=== PATIENT | female | born 1995 | race African-American/Black ===

== ENCOUNTER 2025-03-13 13:02 | Emergency (ER) | payer OTHER ==
[2025-03-13 13:56] LABS: BASOPHILS ABSOLUTE AUTO 0.0 K/mm3 (0.0-0.2); BASOPHILS PERCENT AUTO 0.5 % (0.0-1.0); EOSINOPHILS ABSOLUTE AUTO 0.2 K/mm3 (0.0-0.4); EOSINOPHILS PERCENT AUTO 2.5 % (0.0-6.0); IMMATURE GRAN ABSOLUTE AUTO 0.01 K/mm3 (0.00-0.05); IMMATURE GRAN PERCENT AUTO 0.2 % (0.0-0.4); LYMPHOCYTES ABSOLUTE AUTO 1.5 K/mm3 (1.0-4.8); LYMPHOCYTES PERCENT AUTO 25.2 % (24.0-44.0); MEAN PLATELET VOLUME 9.9 fl (9.4-12.3); MONOCYTES ABSOLUTE AUTO 0.4 K/mm3 (0.0-0.8); MONOCYTES PERCENT AUTO 7.0 % (0.0-8.0); NEUTROPHILS ABSOLUTE AUTO 3.9 K/mm3 (1.8-7.7); NEUTROPHILS PERCENT AUTO 64.6 % (41.0-71.0); NRBC ABSOLUTE 0.00 (0.00-0.02); NRBC PERCENT 0.0 % (0.0-0.2); PLATELET COUNT,PLT 250 K/mm3 (150-400); RED BLOOD CELL COUNT 4.30 M/mm3 (4.10-5.30); WHITE BLOOD CELL COUNT,WBC 6.10 K/mm3 (3.9-11.3)
[2025-03-13 13:59] LABS: APPEARANCE,URINE CLEAR (Clear); GLUCOSE,URINE NEGATIVE (Negative); OCCULT BLOOD,URINE NEGATIVE (Negative)
[2025-03-13 14:38] LABS: A/G RATIO 1.0 (1-2); ALANINE AMINOTRANSFERASE,ALT 16.0 U/L (14-59); ASPARTATE AMNIOTRANSFERASE,AST 14.0 U/L (15-37); BILIRUBIN TOTAL 0.3 mg/dL (0.2-1.0); BLOOD UREA NITROGEN,BUN 9.0 mg/dL (7-18); CARBON DIOXIDE,CO2 25.0 mEq/L (21-32); CHLORIDE,CL 106.0 mEq/L (98-107); CREATININE 0.7 mg/dL (0.55-1.02); EST CRCL DRUG DOSING (CG) 121.78 mL/min; ESTIMATED GFR 121.0 mL/min (>60); GLUCOSE RANDOM 90.0 mg/dL (70-99); HCG QUANTITATIVE 41.0 mIU/mL; POTASSIUM,K 3.8 mEq/L (3.5-5.1); PROTEIN TOTAL,TP 7.0 g/dl (6.4-8.2); SODIUM,NA 140.0 mEq/L (136-145)
[2025-03-13] MEDS ORDERED: Sodium Chloride 0.9% 10 ML Syringe FLUSH PRN (17:55)
[2025-03-13] MEDS: Sodium Chloride 0.9% 10 ML Syringe FLUSH ONE (18:15)
[2025-03-13] MEDS: Iopamidol 612 MG/ML 30 ML SDV IVPUSH ONE (18:15)
[2025-03-13] MEDS: Iopamidol 612 MG/ML 100 ML Bottle IVPUSH ONE (18:15)
[2025-03-16 17:47] LABS: ESTIMATED DUE DATE 07-12-26; FAMILY HISTORY NTD No; GESTATIONAL AGE 3 wks, 1 days; INS REQ'D DIABETES No; MATERNAL AGE 28.5 yr; PATIENT'S AFP 3 ng/mL; RACE Black; SMOKING No; WEIGHT 225.0 lbs.
[2025-03-17 04:46] LABS: DHEA SULFATE 121 ug/dL (99-340)
== END 2025-03-13 20:20 | disposition home or self-care (01) ==
LOC: JD.ED 13:02
DX: R10.24 Suprapubic pain (principal)
CPT/HCPCS: 36415; 71260; 74177; 76817; 80053; 81003; 82105; 82157; 82627; 83615; 84403; 84702; 84703; 85025; 99284; Q9967